=== PATIENT | female | born 1995 | race African-American/Black ===

== ENCOUNTER 2018-07-29 13:24 | Emergency (ER) | payer OTHER ==
--- NOTE | 2018-07-29 14:02 | EDPHYS ---
Physician Documentation [facility] Name: Mamta Mitchell Age: 23 yrs Sex: Female : 1995 Arrival Date: 07/29/2018 Time: 13:25 Bed 12 Private MD: Unknown, Unknown ED Physician Melquiades Colbert HPI: 07/29 14:14 This 23 yrs old Black Female presents to ER via Ambulatory with complaints of ANT BITE, kb Arm Problem. 14:14 The patient presents with cellulitis of the left forearm. Description: erythematous, kb hot, swollen. 14:18 Onset: The symptoms/episode began/occurred yesterday. Possible cause(s): ant bite. kb Associated signs and symptoms: Pertinent positives: erythema, swelling. Modifying factors: the symptoms are alleviated by nothing, the symptoms are aggravated by pressure. Severity of symptoms: At their worst the symptoms were moderate, in the emergency department the symptoms are unchanged. The patient has not experienced similar symptoms in the past. The patient has not recently seen a physician. Historical: - Allergies: 13:51 No Known Allergies; hb - Home Meds: 13:51 None [Active]; hb - PMHx: 13:51 None; hb - PSHx: 13:51 None; hb - Immunization history:: Adult Immunizations up to date. - Social history:: Smoking status: Patient/guardian denies using tobacco. - Ebola Screening: : No symptoms or risks identified at this time. ROS: 14:14 Constitutional: Negative for fever, chills, and weight loss, ENT: Negative for injury, kb pain, and discharge, Neck: Negative for injury, pain, and swelling, Cardiovascular: Negative for chest pain, palpitations, and edema, Respiratory: Negative for shortness of breath, cough, wheezing, and pleuritic chest pain, Abdomen/GI: Negative for abdominal pain, nausea, vomiting, diarrhea, and constipation, MS/Extremity: Negative for injury and deformity, Neuro: Negative for headache, weakness, numbness, tingling, and seizure. 14:14 Skin: Positive for cellulitis, of the left forearm. Exam: 14:13 Constitutional: This is a well developed, well nourished patient who is awake, alert, kb and in no acute distress. Head/Face: Normocephalic, atraumatic. Chest/axilla: Normal chest wall appearance and motion. Nontender with no deformity. No lesions are appreciated. Cardiovascular: Regular rate and rhythm with a normal S1 and S2. No gallops, murmurs, or rubs. Normal PMI, no JVD. No pulse deficits. Respiratory: Lungs have equal breath sounds bilaterally, clear to auscultation and percussion. No rales, rhonchi or wheezes noted. No increased work of breathing, no retractions or nasal flaring. Abdomen/GI: Soft, non-tender, with normal bowel sounds. No distension or tympany. No guarding or rebound. No evidence of tenderness throughout. MS/ Extremity: Pulses equal, no cyanosis. Neurovascular intact. Full, normal range of motion. Neuro: Awake and alert, GCS 15, oriented to person, place, time, and situation. Cranial nerves II-XII grossly intact. Motor strength 5/5 in all extremities. Sensory grossly intact. Cerebellar exam normal. Normal gait. 14:13 Skin: cellulitis, that is moderate, on the left forearm. Vital Signs: 13:50 BP 124 / 70; Pulse 82; Resp 16; Temp 98.1; Pulse Ox 100% on R/A; Pain 6/10; hb MDM: 13:55 Patient medically screened. kb 14:00 Data reviewed: vital signs, nurses notes. Data interpreted: Pulse oximetry: on room air kb is 100 %. Interpretation: normal. Counseling: I had a detailed discussion with the patient and/or guardian regarding: the historical points, exam findings, and any diagnostic results supporting the discharge/admit diagnosis, the need for outpatient follow up, a family practitioner, to return to the emergency department if symptoms worsen or persist or if there are any questions or concerns that arise at home. Administered Medications: 14:19 Drug: Bactrim (160 mg-800 mg (DS) 1 tablet Route: PO; ss 14:26 Follow up: Response: Medication administered at discharge. Disposition: 14:31 Co-signature as Attending Physician, Melquiades Colbert MD I agree with the assessment and kdr plan of care. Disposition: 07/29/18 14:01 Discharged to Home. Impression: Cellulitis of left upper limb. - Condition is Stable. - Discharge Instructions: Cellulitis, Adult, [id number]. - Prescriptions for Bactrim DS 800- 160 mg Oral Tablet - take 1 tablet by ORAL route every 12 hours for 7 days; 14 tablet. - Medication Reconciliation Form, Thank You Letter, Antibiotic Education, Prescription Opioid Use form. - Follow up: Emergency Department; When: As needed; Reason: Worsening of condition. Follow up: Private Physician; When: 2 - 3 days; Reason: Recheck today's complaints, Continuance of care, Re-evaluation by your physician. Signatures: Carmen Sanchez, ANASTACIA-C CLINICAL RESEARCH ADMINISTRATOR-Ckb Melquiades Colbert MD MD [facility] Christie Solitario RN RN Jill Cobian RN RN Corrections: (The following items were deleted from the chart) 14:26 14:01 07/29/2018 14:01 Discharged to Home. Impression: Cellulitis of left upper limb. ss Condition is Stable. Forms are Medication Reconciliation Form, Thank You Letter, Antibiotic Education, Prescription Opioid Use. Follow up: Emergency Department; When: As needed; Reason: Worsening of condition. Follow up: Private Physician; When: 2 - 3 days; Reason: Recheck today's complaints, Continuance of care, Re-evaluation by your physician. kb
--- NOTE | 2018-07-29 14:02 | ER ---
Nurse's Notes [facility] Name: Mamta Mitchell Age: 23 yrs Sex: Female : 1995 Arrival Date: 07/29/2018 Time: 13:25 Bed 12 Private MD: Unknown, Unknown Diagnosis: Cellulitis of left upper limb Presentation: 07/29 13:49 Presenting complaint: Left forearm swelling, pain, and redness after being stung by ant hb on inner wrist yesterday. Transition of care: patient was not received from another setting of care. Onset of symptoms was July 28, 2018. Risk Assessment: Do you want to hurt yourself or someone else? Patient reports no desire to harm self or others. Care prior to arrival: None. 13:49 Method Of Arrival: Ambulatory hb 13:49 Acuity: JHONNY 4 hb 14:26 Initial Sepsis Screen: Does the patient meet any 2 criteria? No. Patient's initial ss sepsis screen is negative. Does the patient have a suspected source of infection? No. Patient's initial sepsis screen is negative. Historical: - Allergies: 13:51 No Known Allergies; hb - Home Meds: 13:51 None [Active]; hb - PMHx: 13:51 None; hb - PSHx: 13:51 None; hb - Immunization history:: Adult Immunizations up to date. - Social history:: Smoking status: Patient/guardian denies using tobacco. - Ebola Screening: : No symptoms or risks identified at this time. Screenin:25 Abuse screen: Denies threats or abuse. Denies injuries from another. Nutritional ss screening: No deficits noted. Tuberculosis screening: Never had TB. Fall Risk None identified. Assessment: 14:23 General: Appears in no apparent distress. comfortable, Behavior is calm, cooperative. ss Pain: Complains of pain in left forearm Pain currently is 6 out of 10 on a pain scale. Quality of pain is described as aching, tender, Pain began 1 day ago. Is continuous. Neuro: Level of Consciousness is awake, alert, obeys commands, Oriented to person, place, time, situation. Cardiovascular: Capillary refill < 3 seconds is brisk in bilateral fingers. Respiratory: Airway is patent Respiratory effort is even, unlabored, Respiratory pattern is regular, symmetrical. GI:. : No signs and/or symptoms were reported regarding the genitourinary system. EENT: Oral mucosa is moist. Derm: Skin is intact, is healthy with good turgor, Skin is dry, Skin is pink, warm \T\ dry. normal. Derm: redness and mild swelling noted to L forearm area. Musculoskeletal: Circulation, motion, and sensation intact. Range of motion: intact in all extremities, Swelling absent. Vital Signs: 13:50 BP 124 / 70; Pulse 82; Resp 16; Temp 98.1; Pulse Ox 100% on R/A; Pain 6/10; hb ED Course: 13:25 Patient arrived in ED. ag5 13:27 Unknown, Unknown is Private Physician. ag5 13:50 Triage completed. hb 13:50 Carmen Sanchez FNP-C is [facility]. kb 13:50 Melquiades Colbert MD is Attending Physician. kb 13:51 Arm band placed on. hb 14:23 Christie Solitario, ALLYSON is Primary Nurse. ss 14:25 Patient has correct armband on for positive identification. Bed in low position. Call ss light in reach. 14:25 No provider procedures requiring assistance completed. Patient did not have IV access ss during this emergency room visit. Administered Medications: 14:19 Drug: Bactrim (160 mg-800 mg (DS) 1 tablet Route: PO; ss 14:26 Follow up: Response: Medication administered at discharge. ss Outcome: 14:01 Discharge ordered by . kb 14:25 Discharged to home ambulatory. ss 14:25 Condition: good 14:25 Discharge instructions given to patient, Instructed on discharge instructions, follow up and referral plans. medication usage, Demonstrated understanding of instructions, follow-up care, medications, Prescriptions given X 1. 14:26 Patient left the ED. ss Signatures: Carmen Sanchez FNP-C FNP-Ckb Smirch, Shelby, RN RN Jill Cobian RN RN Nicanor Parker 5
[2018-07-29] MEDS ORDERED: SMZ./TMP. 800/160 MG TABLET ONE (14:32)
== END 2018-07-29 14:26 | disposition home or self-care (01) ==
LOC: ER 13:24
DX: L03.114 Cellulitis of left upper limb (principal)
CPT/HCPCS: 99283

== ENCOUNTER 2018-08-02 07:56 | Emergency (ER) | payer BC, OTHER ==
[2018-08-02] MEDS ORDERED: NA CHLORIDE 0.9% 1,000 ML ONE (08:46)
[2018-08-02 08:58] LABS: Absolute Lymphocytes (CBC) 0.2 K/uL (0.7-4.9); Absolute Monocytes 0.9 K/uL (0.1-1.3); Absolute Neutrophil 3.9 K/uL (1.8-8.0); Basophils % 0.1 % (0-1.3); Eosinophils % 3.1 % (0-4.4); Hematocrit 42.9 % (36.0-45.0); Lymphocytes % 4.2 % (15.3-44.8); MPV 9.9 fL (7.6-11.3); Monocytes % 16.7 % (3.3-12.3); RBC Red Blood Cell Count 5.07 M/uL (3.86-4.86)
[2018-08-02 09:17] LABS: Albumin 4.2 g/dL (3.4-5.0); Bilirubin Direct 0.1 mg/dL (0-0.2); Bilirubin Total 0.3 mg/dL (0.2-1.0); Potassium 4.3 mmol/L (3.5-5.1); Protein, Total 7.9 g/dL (6.4-8.2)
[2018-08-02 09:42] LABS: Blood Morphology Comment NOT SEEN (NOT SEEN); Platelet Estimate ADEQ; Urine White Blood Cell Casts OK
[2018-08-02 09:46] LABS: Urine Blood TRACE (NEG); Urine Glucose NEGATIVE (NEG); Urine Protein NEGATIVE (NEG); Urine Specific Gravity 1.015 (1.005-1.030); Urine pH 5.5 (5.0-7.0)
[2018-08-02] MEDS ORDERED: KETOROLAC 30 MG/ML INJ ONE (09:54)
--- NOTE | 2018-08-02 10:42 | ER ---
Nurse's Notes [facility] Name: Mamta Mitchell Age: 23 yrs Sex: Female : 1995 Arrival Date: 08/02/2018 Time: 08:02 Bed 16 Private MD: Diagnosis: Influenza due to certain identified influenza viruses Presentation: 08/02 08:09 Presenting complaint: Patient states: headache since yesterday, chills, lower abd pain ss and lower back pain that began this morning. Pt states, "I think I'm dehydrated." Denies N/V/D. Transition of care: patient was not received from another setting of care. Onset of symptoms. Risk Assessment: Do you want to hurt yourself or someone else? Patient reports no desire to harm self or others. Initial Sepsis Screen: Does the patient meet any 2 criteria? No. Patient's initial sepsis screen is negative. Does the patient have a suspected source of infection? No. Patient's initial sepsis screen is negative. Care prior to arrival: None. 08:09 Method Of Arrival: Ambulatory ss 08:09 Acuity: JHONNY 4 ss Triage Assessment: 11:01 Headache History: The patient has had previous headaches and this one is similar to bp previous episodes. General: Appears in no apparent distress. comfortable. General: Behavior is calm, cooperative, appropriate for age. Pain: Pain currently is 7 out of 10 on a pain scale. Pain began 2-3 days ago. Also complains of no other associated symptoms. 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 - Social history:: Smoking status: Patient/guardian denies using tobacco. - Ebola Screening: : Patient denies exposure to infectious person Patient denies travel to an Ebola-affected area in the 21 days before illness onset. Screenin:15 Abuse screen: Denies threats or abuse. Denies injuries from another. Nutritional bp screening: No deficits noted. Tuberculosis screening: No symptoms or risk factors identified. Fall Risk None identified. Assessment: 08:15 General: Appears in no apparent distress. comfortable, Behavior is cooperative, bp appropriate for age, anxious. Pain: Complains of pain in abdomen. Neuro: Level of Consciousness is awake, alert, obeys commands, Oriented to person, place, time, situation, Appropriate for age. Cardiovascular: No deficits noted. Respiratory: Airway is patent Respiratory effort is even, unlabored, Respiratory pattern is regular, symmetrical. GI: Reports lower abdominal pain, upper abdominal pain. : No signs and/or symptoms were reported regarding the genitourinary system. EENT: No deficits noted. Derm: No deficits noted. Musculoskeletal: Circulation, motion, and sensation intact. Range of motion: intact in all extremities. 09:58 Reassessment: ALL CURRENT ORDERS COMPLETED, RESULTS PENDING. bp 11:00 Reassessment: PT D/C HOME AMBULATORY WITH FAMILY, DX WITH INFLUENZA. bp Vital Signs: 08:11 BP 117 / 72; Pulse 98; Resp 14; Temp 99.3(O); Pulse Ox 100% on R/A; Weight 65.77 kg; ss Height 5 ft. 1 in. (154.94 cm); Pain 4/10; 09:19 BP 115 / 79; Pulse 110; Resp 16; Pulse Ox 100% ; bp 09:55 BP 102 / 86; Pulse 100; Resp 16; Pulse Ox 99% ; bp 10:47 BP 106 / 74; Pulse 100; Resp 16; Temp 99.0; Pulse Ox 100% ; bp 08:11 Body Mass Index 27.40 (65.77 kg, 154.94 cm) ss [place] Coma Score: 08:23 Eye Response: spontaneous(4). Verbal Response: oriented(5). Motor Response: obeys kb commands(6). Total: 15. ED Course: 08:02 Patient arrived in ED. mr 08:04 [facility]-C [facility]. kb 08:04 Sundeep Carrasquillo MD is Attending Physician. kb 08:10 Triage completed. ss 08:11 Arm band placed on right wrist. ss 08:15 Patient has correct armband on for positive identification. Bed in low position. Call bp light in reach. Side rails up X2. Adult w/ patient. 08:31 Baltazar Matta, RN is Primary Nurse. bp 08:40 Inserted saline lock: 20 gauge in right antecubital area, using aseptic technique. bp Blood collected. 11:00 No provider procedures requiring assistance completed. IV discontinued, intact, bp bleeding controlled, No redness/swelling at site. Pressure dressing applied. Administered Medications: 08:40 Drug: NS 0.9% 1000 ml Route: IV; Rate: 1000 ml; Site: right antecubital; bp 11:02 Follow up: IV Status: Completed infusion; IV Intake: 1000ml bp 09:40 Drug: TORadol 30 mg Route: IVP; Site: right antecubital; bp 10:50 Follow up: Response: No adverse reaction; Pain is decreased bp 10:59 Drug: Tamiflu 75 mg Route: PO; bp 10:59 Follow up: Response: Medication administered at discharge. bp Intake: 11:02 IV: 1000ml; Total: 1000ml. bp Outcome: 10:42 Discharge ordered by . kb 11:00 Discharged to home ambulatory, with family. bp 11:00 Condition: stable 11:00 Discharge instructions given to patient, Instructed on discharge instructions, follow up and referral plans. medication usage, Demonstrated understanding of instructions, follow-up care, medications, Prescriptions given X 1. 11:03 Patient left the ED. bp Signatures: Carmen Sanchez, ANASTACIA-C ACCOUNT MANAGER-Enzo Adrian Mary Kate mr Christie Solitario, RN RN Baltazar Matta, ALLYSON RN bp
--- NOTE | 2018-08-02 10:42 | EDPHYS ---
Physician Documentation [facility] Name: Mamta Mitchell Age: 23 yrs Sex: Female : 1995 Arrival Date: 08/02/2018 Time: 08:02 Bed 16 Private MD: ED Physician Sundeep Carrasquillo HPI: 08/02 08:19 This 23 yrs old Black Female presents to ER via Ambulatory with complaints of Headache, kb Back Pain, Abdominal Pain. 08:19 The patient complains of pain to the top of head. The patient describes the headache as kb constant. Onset: The symptoms/episode began/occurred yesterday. Associated signs and symptoms: Pertinent positives: abd pain and low back pain. Severity of symptoms: At its worst the pain was mild, in the emergency department the pain is unchanged. Headache History: The patient has had previous headaches. The symptoms are alleviated by nothing. the symptoms are aggravated by nothing. The patient has not experienced similar symptoms in the past. The patient has been recently seen at the [facility] Emergency Department, last week, for unrelated complaints, Pt was seen by me for cellulitis of left forearm. Pt is still taking antibiotics and symptoms are improving. Pt reports headache started yesterday, today has upper abd pain and lower back pain. Denies urinary symptoms, fever, n/v/d. . 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 - Social history:: Smoking status: Patient/guardian denies using tobacco. - Ebola Screening: : Patient denies exposure to infectious person Patient denies travel to an Ebola-affected area in the 21 days before illness onset. ROS: 08:19 Constitutional: Negative for fever, chills, and weight loss, ENT: Negative for injury, kb pain, and discharge, Neck: Negative for injury, pain, and swelling, Cardiovascular: Negative for chest pain, palpitations, and edema, Respiratory: Negative for shortness of breath, cough, wheezing, and pleuritic chest pain, MS/Extremity: Negative for injury and deformity, Skin: Negative for injury, rash, and discoloration. 08:19 Abdomen/GI: Positive for abdominal pain, Negative for nausea, vomiting, and diarrhea, constipation. 08:19 Back: Positive for pain at rest, of the low back area. 08:19 Neuro: Positive for headache, Negative for altered mental status, dizziness, gait disturbance, hearing loss, loss of consciousness, numbness, seizure activity, speech changes, syncope, near syncope, tingling, tinnitus, tremor, visual changes, weakness. Exam: 08:23 Constitutional: This is a well developed, well nourished patient who is awake, alert, kb and in no acute distress. Head/Face: Normocephalic, atraumatic. ENT: Nares patent. No nasal discharge, no septal abnormalities noted. Tympanic membranes are normal and external auditory canals are clear. Oropharynx with no redness, swelling, or masses, exudates, or evidence of obstruction, uvula midline. Mucous membranes moist. Neck: Trachea midline, no thyromegaly or masses palpated, and no cervical lymphadenopathy. Supple, full range of motion without nuchal rigidity, or vertebral point tenderness. No Meningismus. Chest/axilla: Normal chest wall appearance and motion. Nontender with no deformity. No lesions are appreciated. Cardiovascular: Regular rate and rhythm with a normal S1 and S2. No gallops, murmurs, or rubs. Normal PMI, no JVD. No pulse deficits. Respiratory: Lungs have equal breath sounds bilaterally, clear to auscultation and percussion. No rales, rhonchi or wheezes noted. No increased work of breathing, no retractions or nasal flaring. Skin: Warm, dry with normal turgor. Normal color with no rashes, no lesions, and no evidence of cellulitis. MS/ Extremity: Pulses equal, no cyanosis. Neurovascular intact. Full, normal range of motion. Neuro: Awake and alert, GCS 15, oriented to person, place, time, and situation. Cranial nerves II-XII grossly intact. Motor strength 5/5 in all extremities. Sensory grossly intact. Cerebellar exam normal. Normal gait. 08:23 Abdomen/GI: Inspection: abdomen appears normal, Bowel sounds: normal, in all quadrants, Palpation: soft, in all quadrants, nontender, in the right lower quadrant and left lower quadrant, mild abdominal tenderness, in the suprapubic area, right upper quadrant and left upper quadrant. 08:23 Back: CVA tenderness, that is mild, is noted bilaterally. Vital Signs: 08:11 BP 117 / 72; Pulse 98; Resp 14; Temp 99.3(O); Pulse Ox 100% on R/A; Weight 65.77 kg; ss Height 5 ft. 1 in. (154.94 cm); Pain 4/10; 09:19 BP 115 / 79; Pulse 110; Resp 16; Pulse Ox 100% ; bp 09:55 BP 102 / 86; Pulse 100; Resp 16; Pulse Ox 99% ; bp 10:47 BP 106 / 74; Pulse 100; Resp 16; Temp 99.0; Pulse Ox 100% ; bp 08:11 Body Mass Index 27.40 (65.77 kg, 154.94 cm) ss [place] Coma Score: 08:23 Eye Response: spontaneous(4). Verbal Response: oriented(5). Motor Response: obeys kb commands(6). Total: 15. MDM: 08:09 Patient medically screened. [facility] 08:23 Data reviewed: vital signs, nurses notes. Data interpreted: Pulse oximetry: on room air kb is 100 %. Interpretation: normal. 10:42 Counseling: I had a detailed discussion with the patient and/or guardian regarding: the kb historical points, exam findings, and any diagnostic results supporting the discharge/admit diagnosis, lab results, radiology results, the need for outpatient follow up, a family practitioner, to return to the emergency department if symptoms worsen or persist or if there are any questions or concerns that arise at home. 08/02 08:24 Order name: Basic Metabolic Panel; Complete Time: 09:21 kb 08/02 08:24 Order name: CBC with Diff; Complete Time: 09:45 kb 08/02 08:24 Order name: Hepatic Function; Complete Time: 09:21 kb 08/02 08:24 Order name: Lipase; Complete Time: 09:21 kb 08/02 08:55 Order name: Urine Dipstick--Ancillary (enter results); Complete Time: 09:51 bd 08/02 08:59 Order name: CBC Smear Scan; Complete Time: 09:45 EDMS 08/02 08:24 Order name: IV Saline Lock; Complete Time: 08:50 kb 08/02 08:24 Order name: Labs collected and sent; Complete Time: 08:50 kb 08/02 08:24 Order name: Urine Dipstick-Ancillary (obtain specimen); Complete Time: 08:50 kb 08/02 09:27 Order name: Vital Signs; Complete Time: 09:32 kb 08/02 09:35 Order name: Flu; Complete Time: 10:36 kb Administered Medications: 08:40 Drug: NS 0.9% 1000 ml Route: IV; Rate: 1000 ml; Site: right antecubital; bp 11:02 Follow up: IV Status: Completed infusion; IV Intake: 1000ml bp 09:40 Drug: TORadol 30 mg Route: IVP; Site: right antecubital; bp 10:50 Follow up: Response: No adverse reaction; Pain is decreased bp 10:59 Drug: Tamiflu 75 mg Route: PO; bp 10:59 Follow up: Response: Medication administered at discharge. bp Disposition: 11:18 Co-signature as Attending Physician, Sundeep Carrasquillo MD I agree with the assessment and alysha plan of care. Disposition: 08/02/18 10:42 Discharged to Home. Impression: Influenza due to certain identified influenza viruses. - Condition is Stable. - Discharge Instructions: Influenza, Adult, [id number]. - Prescriptions for Tamiflu 75 mg Oral Capsule - take 1 capsule by ORAL route every 12 hours for 5 days; 10 capsule. - Work release form, Medication Reconciliation Form, Thank You Letter, Antibiotic Education, Prescription Opioid Use form. - Follow up: Emergency Department; When: As needed; Reason: Worsening of condition. Follow up: Private Physician; When: 2 - 3 days; Reason: Recheck today's complaints, Continuance of care, Re-evaluation by your physician. Signatures: Dispatcher [employer] [facility] Carmen Sanchez, ANASTACIA-C ANASTACIA-Sundeep Reynoso MD MD cha Smirch, Shelby, ALLYSON RN Baltazar Woods RN RN bp Corrections: (The following items were deleted from the chart) 11:03 10:42 08/02/2018 10:42 Discharged to Home. Impression: Influenza due to certain bp identified influenza viruses. Condition is Stable. Forms are Medication Reconciliation Form, Thank You Letter, Antibiotic Education, Prescription Opioid Use. Follow up: Emergency Department; When: As needed; Reason: Worsening of condition. Follow up: Private Physician; When: 2 - 3 days; Reason: Recheck today's complaints, Continuance of care, Re-evaluation by your physician. kb
[2018-08-02] MEDS ORDERED: OSELTAMIVIR 75 MG CAP ONE (11:05)
== END 2018-08-02 11:03 | disposition home or self-care (01) ==
LOC: ER 07:56
DX: J10.1 Influenza due to other identified influenza virus with other respiratory manifestations (principal); Z88.5 Allergy status to narcotic agent
CPT/HCPCS: 36415; 80048; 80076; 81003; 83690; 85025; 87804; 96361; 96374; 99284; J7030

== ENCOUNTER 2018-08-05 12:20 | Emergency (ER) | payer BC ==
[2018-08-05] MEDS ORDERED: ACETAMINOPHEN 500 MG TAB ONE (12:54)
--- NOTE | 2018-08-05 13:12 | EDPHYS ---
Physician Documentation [facility] Name: Mamta Mitchell Age: 23 yrs Sex: Female : 1995 Arrival Date: 08/05/2018 Time: 12:21 Bed 23 Private MD: ED Physician Doug Hu HPI: 08/05 12:43 This 23 yrs old Black Female presents to ER via Ambulatory with complaints of Fever. jr8 12:43 The patient reports fever, with an emergency department temperature of 101.0 degrees jr8 Fahrenheit. Onset: The symptoms/episode began/occurred gradually, 1 week(s) ago. Modifying factors: there are no obvious modifying factors. Associated signs and symptoms: Pertinent positives: cough, runny nose, sore throat. Severity of symptoms: At their worst the symptoms were mild in the emergency department the symptoms are unchanged. The patient has not experienced similar symptoms in the past. The patient has been recently seen by a physician:. Patient diagnosed with influenza this week. Has been on tamiflu. Came to ED today for extension on work note. Stated that she has bad taste in mouth that she cannot get rid of . 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 - Social history:: Smoking status: Patient/guardian denies using tobacco. - Ebola Screening: : No symptoms or risks identified at this time. ROS: 12:43 Eyes: Negative for injury, pain, redness, and discharge, Neck: Negative for injury, jr8 pain, and swelling, Cardiovascular: Negative for chest pain, palpitations, and edema, Abdomen/GI: Negative for abdominal pain, nausea, vomiting, diarrhea, and constipation, Back: Negative for injury and pain, MS/Extremity: Negative for injury and deformity, Skin: Negative for injury, rash, and discoloration, Neuro: Negative for headache, weakness, numbness, tingling, and seizure. 12:43 Constitutional: Positive for body aches, chills, fever, malaise. 12:43 ENT: Positive for rhinorrhea, sore throat. 12:43 Respiratory: Positive for cough, Negative for dyspnea on exertion, shortness of breath, sputum production, wheezing. Exam: 12:43 Eyes: Pupils equal round and reactive to light, extra-ocular motions intact. Lids and jr8 lashes normal. Conjunctiva and sclera are non-icteric and not injected. Cornea within normal limits. Periorbital areas with no swelling, redness, or edema. Neck: Trachea midline, no thyromegaly or masses palpated, and no cervical lymphadenopathy. Supple, full range of motion without nuchal rigidity, or vertebral point tenderness. No Meningismus. Cardiovascular: Regular rate and rhythm with a normal S1 and S2. No gallops, murmurs, or rubs. Normal PMI, no JVD. No pulse deficits. Respiratory: Lungs have equal breath sounds bilaterally, clear to auscultation and percussion. No rales, rhonchi or wheezes noted. No increased work of breathing, no retractions or nasal flaring. Abdomen/GI: Soft, non-tender, with normal bowel sounds. No distension or tympany. No guarding or rebound. No evidence of tenderness throughout. Back: No spinal tenderness. No costovertebral tenderness. Full range of motion. Skin: Warm, dry with normal turgor. Normal color with no rashes, no lesions, and no evidence of cellulitis. MS/ Extremity: Pulses equal, no cyanosis. Neurovascular intact. Full, normal range of motion. Neuro: Awake and alert, GCS 15, oriented to person, place, time, and situation. Cranial nerves II-XII grossly intact. Motor strength 5/5 in all extremities. Sensory grossly intact. Cerebellar exam normal. Normal gait. 12:43 ENT: Exam is negative for earache, ear discharge, TM abnormalities, nasal discharge, Mouth: Lips: moist, Oral mucosa: pink and intact, moist, Gums: pink, Tongue: is moist, Posterior pharynx: Airway: patent, Tonsils: bilaterally enlarged, with erythema, with exudate, no ulcerations, Uvula: midline, non-edematous, no erythema, swelling, is not appreciated, erythema, that is moderate. Vital Signs: 12:29 BP 108 / 72; Pulse 112; Resp 18 S; Temp 101.0(O); Pulse Ox 98% on R/A; Weight 65.77 kg aa5 (R); Height 5 ft. 1 in. (154.94 cm) (R); Pain 3/10; 13:22 Resp 16; Temp 99.1(TE); ss 12:29 Body Mass Index 27.40 (65.77 kg, 154.94 cm) aa5 MDM: 12:36 Patient medically screened. jr8 13:11 Data reviewed: vital signs, nurses notes, lab test result(s), and as a result, I will jr8 discharge patient. Data interpreted: Pulse oximetry: on room air is 98 %. Interpretation: normal. Counseling: I had a detailed discussion with the patient and/or guardian regarding: the historical points, exam findings, and any diagnostic results supporting the discharge/admit diagnosis, lab results, the need for outpatient follow up, a family practitioner, to return to the emergency department if symptoms worsen or persist or if there are any questions or concerns that arise at home. 08/05 12:36 Order name: Strep; Complete Time: 13:10 jr8 08/05 13:06 Order name: Throat Culture EDMS Administered Medications: 12:44 Drug: Tylenol 1000 mg Route: PO; aa5 13:23 Follow up: Response: No adverse reaction; Temperature is decreased ss Disposition: 17:49 Co-signature as Attending Physician, Doug Hu MD. rn Disposition: 08/05/18 13:11 Discharged to Home. Impression: Fever, unspecified, Acute pharyngitis. - Condition is Stable. - Discharge Instructions: Fever, Adult, Pharyngitis. - Work release form, Medication Reconciliation Form, Thank You Letter, Antibiotic Education, Prescription Opioid Use form. - Follow up: Private Physician; When: 2 - 3 days; Reason: Recheck today's complaints, Continuance of care, Re-evaluation by your physician. - Problem is new. - Symptoms have improved. 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 EDKY EDKY 13:23 13:11 08/05/2018 13:11 Discharged to Home. Impression: Fever, unspecified; Acute ss pharyngitis. Condition is Stable. Forms are Medication Reconciliation Form, Thank You Letter, Antibiotic Education, Prescription Opioid Use. Follow up: Private Physician; When: 2 - 3 days; Reason: Recheck today's complaints, Continuance of care, Re-evaluation by your physician. Problem is new. Symptoms have improved. jr8
--- NOTE | 2018-08-05 13:12 | ER ---
Nurse's Notes [facility] Name: Mamta Mitchell Age: 23 yrs Sex: Female : 1995 Arrival Date: 08/05/2018 Time: 12:21 Bed 23 Private MD: Diagnosis: Fever, unspecified;Acute pharyngitis Presentation: 08/05 12:27 Presenting complaint: Patient states: body aches, cough, fever that began Thursday. Pt aa5 reports taking Motrin at 1100. Transition of care: patient was not received from another setting of care. Onset of symptoms was August 2018. Risk Assessment: Do you want to hurt yourself or someone else? Patient reports no desire to harm self or others. Care prior to arrival: None. 12:27 Method Of Arrival: Ambulatory aa5 12:27 Acuity: JHONNY 4 aa5 12:27 Initial Sepsis Screen: Does the patient meet any 2 criteria? Temp <36.0*C (96.8*F)) or aa5 > 38.3*C (100.9*F). HR > 90 bpm. Yes Does the patient have a suspected source of infection? Yes:. 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 - Social history:: Smoking status: Patient/guardian denies using tobacco. - Ebola Screening: : No symptoms or risks identified at this time. Screenin:46 Abuse screen: Denies threats or abuse. Nutritional screening: No deficits noted. aa5 Tuberculosis screening: No symptoms or risk factors identified. Fall Risk None identified. Assessment: 12:40 General: Appears uncomfortable, Behavior is cooperative. Pain: Complains of pain in aa5 whole body Quality of pain is described as aching. Neuro: Level of Consciousness is awake, alert, obeys commands, Oriented to person, place, time, situation. Cardiovascular: Heart tones S1 S2 present Rhythm is regular. Respiratory: Reports cough Airway is patent Respiratory effort is even, unlabored, Respiratory pattern is regular, symmetrical, Breath sounds are clear bilaterally. GI: Abdomen is round non-distended, Bowel sounds present X 4 quads. Abd is soft and non tender X 4 quads. Reports nausea, Patient currently denies vomiting. : No signs and/or symptoms were reported regarding the genitourinary system. EENT: Denies sore throat. Derm: Skin is dry, Skin is normal, Skin temperature is warm. Musculoskeletal: Range of motion: intact in all extremities. Vital Signs: 12:29 BP 108 / 72; Pulse 112; Resp 18 S; Temp 101.0(O); Pulse Ox 98% on R/A; Weight 65.77 kg aa5 (R); Height 5 ft. 1 in. (154.94 cm) (R); Pain 3/10; 13:22 Resp 16; Temp 99.1(TE); ss 12:29 Body Mass Index 27.40 (65.77 kg, 154.94 cm) aa5 ED Course: 12:21 Patient arrived in ED. rg4 12:27 Arm band placed on. aa5 12:27 Patient has correct armband on for positive identification. Bed in low position. Call aa5 light in reach. Side rails up X 1. Adult w/ patient. 12:28 Triage completed. aa5 12:35 Francis Pruett PA is PHCP. jr8 12:35 Doug Hu MD is Attending Physician. jr8 12:44 Nara Stokes, ALLYSON is Primary Nurse. aa5 12:47 No provider procedures requiring assistance completed. aa5 13:22 Patient did not have IV access during this emergency room visit. ss Administered Medications: 12:44 Drug: Tylenol 1000 mg Route: PO; aa5 13:23 Follow up: Response: No adverse reaction; Temperature is decreased ss Outcome: 13:11 Discharge ordered by . jr8 13:22 Discharged to home ambulatory. ss 13:22 Condition: good 13:22 Discharge instructions given to patient, Instructed on discharge instructions, follow up and referral plans. medication usage, Demonstrated understanding of instructions, follow-up care, medications. 13:23 Patient left the ED. Signatures: Nara Stokes, RN RN aa5 Christie Solitario RN RN Francis Pruett PA PA 8 Nikki Villarreal rg4
== END 2018-08-05 13:23 | disposition home or self-care (01) ==
LOC: ER 12:20
DX: J02.9 Acute pharyngitis, unspecified (principal); Z88.5 Allergy status to narcotic agent
CPT/HCPCS: 87070; 87081; 99283

== ENCOUNTER 2018-08-05 16:08 | Emergency (ER) | payer BC ==
--- NOTE | 2018-08-05 17:12 | ER ---
Nurse's Notes [facility] Name: Mamta Mitchell Age: 23 yrs Sex: Female : 1995 Arrival Date: 08/05/2018 Time: 16:12 Bed 14 Private MD: Diagnosis: Allergic contact dermatitis;Allergy status to drugs, medicaments and biological substances-Sulfa or Tamiflu Presentation: 08/05 16:12 Presenting complaint: Patient states: Seen recently in ER for Rash last week after ant ss bite, but reports it is getting worse and spreading. Transition of care: patient was not received from another setting of care. Onset: The symptoms/episode began/occurred 1 week(s) ago. Anaphylaxis evaluation, no signs or symptoms of anaphylaxis were noted. Onset of symptoms is unknown. Risk Assessment: Do you want to hurt yourself or someone else? Patient reports no desire to harm self or others. Initial Sepsis Screen: Does the patient meet any 2 criteria? No. Patient's initial sepsis screen is negative. Does the patient have a suspected source of infection? No. Patient's initial sepsis screen is negative. Care prior to arrival: None. 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 - Social history:: Smoking status: Patient/guardian denies using tobacco. - Ebola Screening: : Patient denies exposure to infectious person Patient denies travel to an Ebola-affected area in the 21 days before illness onset. Screenin:38 Abuse screen: Denies threats or abuse. Denies injuries from another. Nutritional rv screening: No deficits noted. Tuberculosis screening: No symptoms or risk factors identified. Fall Risk None identified. Assessment: 16:37 General: Appears in no apparent distress. comfortable, Behavior is calm, cooperative. rv Pain: Denies pain. Neuro: Level of Consciousness is awake, alert, obeys commands, Oriented to person, place, time, situation. Cardiovascular: Capillary refill < 3 seconds. Respiratory: Airway is patent Respiratory effort is even, Breath sounds are clear bilaterally. GI: No signs and/or symptoms were reported involving the gastrointestinal system. : No signs and/or symptoms were reported regarding the genitourinary system. EENT: No signs and/or symptoms were reported regarding the EENT system. Derm: Skin is intact. Musculoskeletal: No signs and/or symptoms reported regarding the musculoskeletal system. Vital Signs: 16:15 BP 102 / 66; Pulse 91; Resp 14; Temp 98.4(TE); Pulse Ox 97% on R/A; Weight 65.77 kg; ss Height 5 ft. 1 in. (154.94 cm); 16:15 Body Mass Index 27.40 (65.77 kg, 154.94 cm) ED Course: 16:12 Patient arrived in ED. ss 16:15 Triage completed. ss 16:15 Arm band placed on right wrist. ss 16:19 Viky Cordoba FNP-C is [facility]. snw 16:19 Doug Hu MD is Attending Physician. snw 16:29 Sharad Alejandro RN is Primary Nurse. rv 16:38 Patient has correct armband on for positive identification. Bed in low position. Call rv light in reach. Side rails up X 1. Pulse ox on. NIBP on. 17:33 No provider procedures requiring assistance completed. Patient did not have IV access rv during this emergency room visit. Administered Medications: 17:05 Drug: Atarax 50 mg Route: PO; rv 17:33 Follow up: Response: Marked relief of symptoms rv 17:05 Drug: Pepcid 20 mg Route: PO; rv 17:32 Follow up: Response: No adverse reaction rv Outcome: 17:11 Discharge ordered by . snw 17:33 Discharged to home ambulatory. rv 17:33 Condition: good 17:33 Discharge instructions given to patient, Instructed on discharge instructions, follow up and referral plans. medication usage, Demonstrated understanding of instructions, follow-up care, medications, Prescriptions given X 2. 17:37 Patient left the ED. rv Signatures: Viky Cordoba FNP-C FNP-Christie Trejo RN RN Sharad Alejandro RN RN rv
--- NOTE | 2018-08-05 17:12 | EDPHYS ---
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 - Social history:: Smoking status: Patient/guardian denies using tobacco. - Ebola Screening: : Patient denies exposure to infectious person Patient denies travel to an Ebola-affected area in the 21 days before illness onset. Exam: 17:35 Head/Face: Normocephalic, atraumatic. snw 17:35 Eyes: Pupils equal round and reactive to light, extra-ocular motions intact. Lids and lashes normal. Conjunctiva and sclera are non-icteric and not injected. Cornea within normal limits. Periorbital areas with no swelling, redness, or edema. ENT: Nares patent. No nasal discharge, no septal abnormalities noted. Tympanic membranes are normal and external auditory canals are clear. Oropharynx with redness, no swelling, or masses, exudates, or evidence of obstruction, uvula midline. Mucous membranes moist. Neck: Trachea midline, no thyromegaly or masses palpated, and no cervical lymphadenopathy. Supple, full range of motion without nuchal rigidity, or vertebral point tenderness. No Meningismus. Chest/axilla: Normal chest wall appearance and motion. Nontender with no deformity. No lesions are appreciated. Cardiovascular: Regular rate and rhythm with a normal S1 and S2. No gallops, murmurs, or rubs. Normal PMI, no JVD. No pulse deficits. Respiratory: Lungs have equal breath sounds bilaterally, clear to auscultation and percussion. No rales, rhonchi or wheezes noted. No increased work of breathing, no retractions or nasal flaring. Abdomen/GI: Soft, non-tender, with normal bowel sounds. No distension or tympany. No guarding or rebound. No evidence of tenderness throughout. Back: No spinal tenderness. No costovertebral tenderness. Full range of motion. Skin: Warm, dry with normal turgor. Normal color with no rashes, no lesions, and no evidence of cellulitis. MS/ Extremity: Pulses equal, no cyanosis. Neurovascular intact. Full, normal range of motion. Neuro: Awake and alert, GCS 15, oriented to person, place, time, and situation. Cranial nerves II-XII grossly intact. Motor strength 5/5 in all extremities. Sensory grossly intact. Cerebellar exam normal. Normal gait. 17:35 Constitutional: The patient appears alert, awake, uncomfortable. Vital Signs: 16:15 BP 102 / 66; Pulse 91; Resp 14; Temp 98.4(TE); Pulse Ox 97% on R/A; Weight 65.77 kg; ss Height 5 ft. 1 in. (154.94 cm); 16:15 Body Mass Index 27.40 (65.77 kg, 154.94 cm) ss MDM: 16:43 Patient medically screened. snw 17:36 Data reviewed: vital signs, nurses notes. Data interpreted: Pulse oximetry: on room air snw is 97 %. Interpretation: normal. Counseling: I had a detailed discussion with the patient and/or guardian regarding: the historical points, exam findings, and any diagnostic results supporting the discharge/admit diagnosis, the need for outpatient follow up, to return to the emergency department if symptoms worsen or persist or if there are any questions or concerns that arise at home. Special discussion: Based on the history and exam findings, there is no indication for further emergent testing or inpatient evaluation. I discussed with the patient/guardian the need to see the primary care provider for further evaluation of the symptoms. 17:39 ED course: pt was here for cellulitis 07/29, given Bactrim. Finished Bactrim, area of snw cellulitis similar to onset. Returned and was dx with Influenza on 08/03, given Tamiflu. Seen today with pharyngitis, strep screen negative. Returns today again for rash that seems to be spreading. + allergy. Asked pt to stop Tamiflu. Allergic response possibly from Bactrim or Tamiflu. Administered Medications: 17:05 Drug: Atarax 50 mg Route: PO; rv 17:33 Follow up: Response: Marked relief of symptoms rv 17:05 Drug: Pepcid 20 mg Route: PO; rv 17:32 Follow up: Response: No adverse reaction rv Disposition: 08/05/18 17:11 Discharged to Home. Impression: Allergic contact dermatitis, Allergy status to drugs, medicaments and biological substances - Sulfa or Tamiflu. - Condition is Stable. - Discharge Instructions: Allergies, Adult, Drug Allergy. - Prescriptions for Vistaril 25 mg Oral capsule - take 1 capsule by ORAL route 3 times per day; 30 capsule. Pepcid 20 mg Oral Tablet - take 1 tablet by ORAL route every 12 hours for 10 days; 20 tablet. - Medication Reconciliation Form, Thank You Letter, Antibiotic Education, Prescription Opioid Use form. - Follow up: Private Physician; When: 2 - 3 days; Reason: Recheck today's complaints, Continuance of care, Re-evaluation by your physician. Follow up: Emergency Department; When: As needed; Reason: Worsening of condition. Addendum: 08/09/2018 07:02 Co-signature as Attending Physician, Doug Hu MD. r n 08/13/2018 05:16 Addendum: HPI: multiple visits this week for rash to hand/arm s/p insect bites. Pt s nw completed Bactrim. Returned for fever and malaise, bodyaches. + influenza, given Tamiflu. Pt returns today with severe itching, to upper extremities with em type rash. Encouraged to stop Tamiflu and consider allergy to Tamiflu and Bactrim. + itching, rash, negative for swelling, shortness of breath, dysphagia, no mucous membrane breakdown.. Signatures: Viky Cordoba, ASSOCIATE DATA SCIENTIST-C ASSOCIATE DATA SCIENTIST-Csnw Doug Hu MD MD rn Smirch, Shelby, RN RN ss Vicente, Ronaldo, RN RN rv Corrections: (The following items were deleted from the chart) 08/05 17:37 17:11 08/05/2018 17:11 Discharged to Home. Impression: Allergic contact dermatitis; rv Allergy status to drugs, medicaments and biological substances - Sulfa or Tamiflu. Condition is Stable. Forms are Medication Reconciliation Form, Thank You Letter, Antibiotic Education, Prescription Opioid Use. Follow up: Private Physician; When: 2 - 3 days; Reason: Recheck today's complaints, Continuance of care, Re-evaluation by your physician. Follow up: Emergency Department; When: As needed; Reason: Worsening of condition. snw 17:39 17:35 Eyes: Pupils equal round and reactive to light, extra-ocular motions intact. Lids snw and lashes normal. Conjunctiva and sclera are non-icteric and not injected. Cornea within normal limits. Periorbital areas with no swelling, redness, or edema. ENT: Nares patent. No nasal discharge, no septal abnormalities noted. Tympanic membranes are normal and external auditory canals are clear. Oropharynx with redness, swelling, or masses, exudates, or evidence of obstruction, uvula midline. Mucous membranes moist. Neck: Trachea midline, no thyromegaly or masses palpated, and no cervical lymphadenopathy. Supple, full range of motion without nuchal rigidity, or vertebral point tenderness. No Meningismus. Chest/axilla: Normal chest wall appearance and motion. Nontender with no deformity. No lesions are appreciated. Cardiovascular: Regular rate and rhythm with a normal S1 and S2. No gallops, murmurs, or rubs. Normal PMI, no JVD. No pulse deficits. Respiratory: Lungs have equal breath sounds bilaterally, clear to auscultation and percussion. No rales, rhonchi or wheezes noted. No increased work of breathing, no retractions or nasal flaring. Abdomen/GI: Soft, non-tender, with normal bowel sounds. No distension or tympany. No guarding or rebound. No evidence of tenderness throughout. Back: No spinal tenderness. No costovertebral tenderness. Full range of motion. Skin: Warm, dry with normal turgor. Normal color with no rashes, no lesions, and no evidence of cellulitis. MS/ Extremity: Pulses equal, no cyanosis. Neurovascular intact. Full, normal range of motion. Neuro: Awake and alert, GCS 15, oriented to person, place, time, and situation. Cranial nerves II-XII grossly intact. Motor strength 5/5 in all extremities. Sensory grossly intact. Cerebellar exam normal. Normal gait. snw
[2018-08-05] MEDS ORDERED: FAMOTIDINE 20 MG TAB ONE (17:23)
[2018-08-05] MEDS ORDERED: hydrOXYzine HCl 25 MG TAB ONE (17:23)
== END 2018-08-05 17:37 | disposition home or self-care (01) ==
LOC: ER 16:08
DX: L23.9 Allergic contact dermatitis, unspecified cause (principal); Z88.8 Allergy status to other drugs, medicaments and biological substances; Z88.5 Allergy status to narcotic agent
CPT/HCPCS: 99283

== ENCOUNTER 2019-01-01 20:10 | Emergency (ER) | payer BC, OTHER ==
[2019-01-01 20:44] LABS: Absolute Lymphocytes (CBC) 1.1 K/uL (0.7-4.9); Basophils % 0.6 % (0-1.3); Hematocrit 43.1 % (36.0-45.0); Lymphocytes % 24.2 % (15.3-44.8); MPV 9.4 fL (7.6-11.3); RBC Red Blood Cell Count 5.02 M/uL (3.86-4.86)
[2019-01-01 21:01] LABS: Albumin 4.3 g/dL (3.4-5.0); Bilirubin Direct 0.2 mg/dL (0-0.2); Bilirubin Total 0.6 mg/dL (0.2-1.0); Potassium 3.5 mmol/L (3.5-5.1)
[2019-01-01 21:24] LABS: Urine Blood 1+ (NEG); Urine Glucose NEGATIVE (NEG); Urine Protein 3+ (NEG); Urine Specific Gravity >1.030 (1.005-1.030); Urine pH 5.5 (5.0-7.0)
--- NOTE | 2019-01-01 21:26 | ER ---
Nurse's Notes [facility] Name: Mamta Mitchell Age: 23 yrs Sex: Female : 1995 Arrival Date: 01/01/2019 Time: 20:14 Bed 19 Private MD: Diagnosis: Unspecified abdominal pain;Urinary tract infection, site not specified Presentation: 01/01 20:24 Presenting complaint: Patient states: abd pain since yesterday, worse today. Transition la1 of care: patient was not received from another setting of care. Onset of symptoms was January 01, 2019. Risk Assessment: Do you want to hurt yourself or someone else? Patient reports no desire to harm self or others. Initial Sepsis Screen: Does the patient meet any 2 criteria? No. Patient's initial sepsis screen is negative. Does the patient have a suspected source of infection? No. Patient's initial sepsis screen is negative. Care prior to arrival: None. 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 - Social history:: Smoking status: Patient/guardian denies using tobacco. - Ebola Screening: : No symptoms or risks identified at this time. Screenin:44 Abuse screen: Denies threats or abuse. Nutritional screening: No deficits noted. jd3 Tuberculosis screening: No symptoms or risk factors identified. Fall Risk IV access (20 points). Ambulatory Aid- None/Bed Rest/Nurse Assist (0 pts). Gait- Normal/Bed Rest/Wheelchair (0 pts) Mental Status- Oriented to own ability (0 pts). Total Son Fall Scale indicates No Risk (0-24 pts). Assessment: 20:42 General: Appears in no apparent distress. uncomfortable, Behavior is calm, cooperative, jd3 appropriate for age. Pain: Complains of pain in abdomen Quality of pain is described as crampy, sharp. Neuro: Level of Consciousness is awake, alert, obeys commands, Oriented to person, place, time, situation. Cardiovascular: Denies chest pain, Capillary refill < 3 seconds Patient's skin is warm and dry. Respiratory: Airway is patent Respiratory effort is even, unlabored, Respiratory pattern is regular, symmetrical, Denies cough, shortness of breath. GI: Abdomen is round non-distended, Abd is soft and non tender X 4 quads. Reports upper abdominal pain, cramping, Patient currently denies constipation, diarrhea, nausea, vomiting. : No signs and/or symptoms were reported regarding the genitourinary system. EENT: No signs and/or symptoms were reported regarding the EENT system. Derm: Skin is intact, Skin is dry, Skin is normal, Skin temperature is warm. Musculoskeletal: Circulation, motion, and sensation intact. Range of motion: intact in all extremities. 21:19 Reassessment: Patient appears in no apparent distress at this time. No changes from jd3 previously documented assessment. Patient and/or family updated on plan of care and expected duration. Pain level reassessed. Patient is alert, oriented x 3, equal unlabored respirations, skin warm/dry/pink. pt refusing CT scan. 21:45 Reassessment: Patient appears in no apparent distress at this time. Patient and/or jd3 family updated on plan of care and expected duration. Pain level reassessed. Patient is alert, oriented x 3, equal unlabored respirations, skin warm/dry/pink. pt reported understanding of discharge instructions. Patient states feeling better. Vital Signs: 20:24 BP 129 / 90; Pulse 89; Resp 16; Temp 97.7; Pulse Ox 100% ; Weight 63.5 kg; Height 5 ft. la1 1 in. (154.94 cm); 21:45 BP 119 / 78; Pulse 88; Resp 16 S; Pulse Ox 100% on R/A; jd3 20:24 Body Mass Index 26.45 (63.50 kg, 154.94 cm) la1 ED Course: 20:14 Patient arrived in ED. mr 20:16 Qasim Shah NP is PHCP. pm1 20:16 Doug Hu MD is Attending Physician. pm1 20:24 Triage completed. la1 20:30 Jose Whitlock RN is Primary Nurse. jd3 20:35 Inserted saline lock: 20 gauge in right antecubital area, using aseptic technique. jd3 Blood collected. 20:42 Arm band placed on. jd3 20:45 Patient has correct armband on for positive identification. Bed in low position. Call jd3 light in reach. Side rails up X 1. 21:44 No provider procedures requiring assistance completed. IV discontinued, intact, jd3 bleeding controlled, No redness/swelling at site. Pressure dressing applied. Administered Medications: 21:40 Drug: Rocephin 1 grams Route: IV; Rate: calculated rate; Site: left antecubital; jd3 21:44 Follow up: Response: No adverse reaction; IV Status: Completed infusion; IV Intake: [id number] Intake: 21:44 IV: 10ml; Total: 10ml. jd3 Outcome: 21:24 Discharge ordered by MD. pm1 21:44 Discharged to home ambulatory, with family. jd3 21:44 Condition: stable 21:44 Discharge instructions given to patient, family, Instructed on discharge instructions, follow up and referral plans. medication usage, Demonstrated understanding of instructions, follow-up care, medications, Prescriptions given X 1. 21:46 Patient left the ED. jd3 Addendum: 01/04/2019 09:52 Addendum: Culture Results: Positive urine culture. No further action required. Bacteria s s sensitive to prescribed antibiotic. Signatures: Mary Kate Campbell mr Christie Solitario, RN RN ss Gene Barnes RN RN la1 Qasim Shah, KALEN AERONAUTICAL RESEARCH ENGINEER pm1 Jose Whitlock RN RN jd3 Corrections: (The following items were deleted from the chart) 01/01 21:19 21:19 Reassessment: Patient appears in no apparent distress at this time. Patient jd3 and/or family updated on plan of care and expected duration. Pain level reassessed. Patient is alert, oriented x 3, equal unlabored respirations, skin warm/dry/pink. pt refusing CT scan. jd3
--- NOTE | 2019-01-01 21:27 | EDPHYS ---
Physician Documentation [facility] Name: Mamta Mitchell Age: 23 yrs Sex: Female : 1995 Arrival Date: 01/01/2019 Time: 20:14 Bed 19 Private MD: ED Physician Doug Hu HPI: 01/01 20:45 This 23 yrs old Black Female presents to ER via Ambulatory with complaints of Abdominal pm1 Pain. 20:45 The patient presents with abdominal pain in the lower abdomen. Onset: The pm1 symptoms/episode began/occurred yesterday. The symptoms do not radiate. Associated signs and symptoms: Pertinent negatives: nausea, vomiting, and diarrhea, chest pain, dysuria, fever, shortness of breath. The symptoms are described as sharp. Modifying factors: The symptoms are alleviated by nothing, the symptoms are aggravated by nothing. Severity of pain: in the emergency department the pain has improved. The patient has not experienced similar symptoms in the past. The patient has not recently seen a physician. Took three tests at home and all negative. 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 - Social history:: Smoking status: Patient/guardian denies using tobacco. - Ebola Screening: : No symptoms or risks identified at this time. ROS: 20:45 Constitutional: Negative for fever, chills, and weight loss, Eyes: Negative for injury, pm1 pain, redness, and discharge, ENT: Negative for injury, pain, and discharge, Neck: Negative for injury, pain, and swelling, Cardiovascular: Negative for chest pain, palpitations, and edema, Respiratory: Negative for shortness of breath, cough, wheezing, and pleuritic chest pain. 20:45 Back: Negative for injury and pain, : Negative for injury, bleeding, discharge, and swelling, MS/Extremity: Negative for injury and deformity, Skin: Negative for injury, rash, and discoloration, Neuro: Negative for headache, weakness, numbness, tingling, and seizure. 20:45 Abdomen/GI: Positive for abdominal pain, Negative for nausea, vomiting, and diarrhea, constipation. Exam: 20:45 Constitutional: This is a well developed, well nourished patient who is awake, alert, pm1 and in no acute distress. Head/Face: Normocephalic, atraumatic. Neck: Trachea midline, no thyromegaly or masses palpated, and no cervical lymphadenopathy. Supple, full range of motion without nuchal rigidity, or vertebral point tenderness. No Meningismus. Chest/axilla: Normal chest wall appearance and motion. Nontender with no deformity. No lesions are appreciated. Cardiovascular: Regular rate and rhythm with a normal S1 and S2. No gallops, murmurs, or rubs. Normal PMI, no JVD. No pulse deficits. Respiratory: Lungs have equal breath sounds bilaterally, clear to auscultation and percussion. No rales, rhonchi or wheezes noted. No increased work of breathing, no retractions or nasal flaring. Abdomen/GI: Soft, non-tender, with normal bowel sounds. No distension or tympany. No guarding or rebound. No evidence of tenderness throughout. Back: No spinal tenderness. No costovertebral tenderness. Full range of motion. Skin: Warm, dry with normal turgor. Normal color with no rashes, no lesions, and no evidence of cellulitis. MS/ Extremity: Pulses equal, no cyanosis. Neurovascular intact. Full, normal range of motion. 20:45 Neuro: Orientation: is normal, Motor: is normal, moves all fours, Sensation: is normal, no obvious gross deficits. Vital Signs: 20:24 BP 129 / 90; Pulse 89; Resp 16; Temp 97.7; Pulse Ox 100% ; Weight 63.5 kg; Height 5 ft. la1 1 in. (154.94 cm); 21:45 BP 119 / 78; Pulse 88; Resp 16 S; Pulse Ox 100% on R/A; jd3 20:24 Body Mass Index 26.45 (63.50 kg, 154.94 cm) la1 MDM: 20:21 Patient medically screened. pm1 20:25 ED course: Patient states that she did not even want to be here and was brought to the pm1 ER by her mother. Patient does not want a CT scan but asked if she was willing to get evaluated for her lower abdominal pain with labs. Patient agreed to lab work. 20:46 Data reviewed: vital signs. Data interpreted: Pulse oximetry: on room air is 100 %. pm1 Interpretation: normal. 21:21 ED course: Reevaluated patient and patient with mild epigastric tenderness. I pm1 recommended CT scan as I had discussed with her on my initial evaluation and she is still refusing CT scan. Patient understands that I cannot complete my evaluation of her abdominal pain without a CT scan. Patient states that she will come back to the ER if she gets worse. 01/01 20:25 Order name: Basic Metabolic Panel; Complete Time: 21:04 pm1 01/01 20:25 Order name: CBC with Diff; Complete Time: 21:04 pm1 01/01 20:25 Order name: Creatinine for Radiology; Complete Time: 21:04 pm1 01/01 20:25 Order name: Hepatic Function; Complete Time: 21:04 pm1 01/01 20:25 Order name: Lipase; Complete Time: 21:04 pm1 01/01 21:20 Order name: Urine Dipstick--Ancillary (enter results); Complete Time: 21:29 ag4 01/01 20:25 Order name: IV Saline Lock; Complete Time: 20:42 pm1 01/01 20:25 Order name: Labs collected and sent; Complete Time: 20:42 pm1 01/01 20:25 Order name: Urine Dipstick-Ancillary (obtain specimen); Complete Time: 21:17 pm1 01/01 20:25 Order name: Urine Test (obtain specimen); Complete Time: 21:17 pm1 01/01 21:20 Order name: Urine --Ancillary (enter results); Complete Time: 21:29 ag4 01/01 21:31 Order name: Urine Culture pm01/01 21:31 Order name: Urine Microscopic Only; Complete Time: 00:35 pm1 Administered Medications: 21:40 Drug: Rocephin 1 grams Route: IV; Rate: calculated rate; Site: left antecubital; jd3 21:44 Follow up: Response: No adverse reaction; IV Status: Completed infusion; IV Intake: [id number] Disposition: 23:21 Co-signature as Attending Physician, Doug Hu MD. rn Disposition: 01/01/19 21:24 Discharged to Home. Impression: Unspecified abdominal pain, Urinary tract infection, site not specified. - Condition is Stable. - Discharge Instructions: Abdominal Pain, Adult, Urinary Tract Infection, Adult. - Prescriptions for Macrobid 100 mg Oral Capsule - take 1 capsule by ORAL route every 12 hours for 10 days; 20 capsule. - Medication Reconciliation Form, Thank You Letter, Antibiotic Education, Prescription Opioid Use form. - Follow up: Emergency Department; When: As needed; Reason: Worsening of condition. Follow up: Private Physician; When: 2 - 3 days; Reason: Recheck today's complaints, Continuance of care, Re-evaluation by your physician. - Problem is new. - Symptoms have improved. Signatures: Dispatcher [employer] EDMS Doug Hu MD MD rn Attema, Lee RN RN la1 Qasim Shah, ELECTRON MICROSCOPIST ELECTRON MICROSCOPIST pm1 Jose Whitlock RN RN jd3 Corrections: (The following items were deleted from the chart) 21:30 21:24 01/01/2019 21:24 Discharged to Home. Impression: Unspecified abdominal pain. pm1 Condition is Stable. Forms are Medication Reconciliation Form, Thank You Letter, Antibiotic Education, Prescription Opioid Use. Follow up: Emergency Department; When: As needed; Reason: Worsening of condition. Follow up: Private Physician; When: 2 - 3 days; Reason: Recheck today's complaints, Continuance of care, Re-evaluation by your physician. Problem is new. Symptoms have improved. pm1 21:46 21:30 01/01/2019 21:24 Discharged to Home. Impression: Unspecified abdominal pain; jd3 Urinary tract infection, site not specified. Condition is Stable. Discharge Instructions: Abdominal Pain, Adult. Forms are Medication Reconciliation Form, Thank You Letter, Antibiotic Education, Prescription Opioid Use. Follow up: Emergency Department; When: As needed; Reason: Worsening of condition. Follow up: Private Physician; When: 2 - 3 days; Reason: Recheck today's complaints, Continuance of care, Re-evaluation by your physician. Problem is new. Symptoms have improved. pm1
[2019-01-01] MEDS ORDERED: CEFTRIAXONE/SWI 1gm 1 GM/10 ML SYR ONE (21:35)
[2019-01-01 21:37] LABS: Urine Bacteria >50 /HPF (<20); Urine Culture Reflex Order REFLEXED; Urine RBC <5 /HPF (NONE SEEN)
== END 2019-01-01 21:46 | disposition home or self-care (01) ==
LOC: ER 20:10
DX: N39.0 Urinary tract infection, site not specified (principal); Z88.6 Allergy status to analgesic agent; Z88.7 Allergy status to serum and vaccine
CPT/HCPCS: 87088; 85025; 87086; 80048; 36415; 81025; 80076; 87077; 87186; 83690; 96374; 99284; J0696; 81003; 81015

== ENCOUNTER 2020-12-14 08:09 | Emergency (ER) | payer OTHER ==
--- NOTE | 2020-12-14 14:07 | ER ---
Nurse's Notes [facility] Name: Mamta Mitchell Age: 25 yrs Sex: Female : 1995 Arrival Date: 12/14/2020 Time: 08:16 Bed Waiting Private MD: Diagnosis: Presentation: 12/14 09:01 Chief complaint: Patient states: "I have a headache I haven't been able to get rid of. ss I took Tylenol sinus and headache and it worked, it went away, but it's back this morning. Pt reports that her headache is not as bad as yesterday, so she has not taken anymore Tylenol.". Coronavirus screen: Client denies travel out of the [place] in the last 14 days. Ebola Screen: Patient denies exposure to infectious person. Patient denies travel to an Ebola-affected area in the 21 days before illness onset. Initial Sepsis Screen: Does the patient meet any 2 criteria? No. Patient's initial sepsis screen is negative. Does the patient have a suspected source of infection? No. Patient's initial sepsis screen is negative. Risk Assessment: Do you want to hurt yourself or someone else? Patient reports no desire to harm self or others. Onset of symptoms was December 13, 2020. 09:01 Method Of Arrival: Ambulatory 09:01 Acuity: JHONNY 5 Historical: - Allergies: 09:02 Codeine; ss 09:02 [place]; 09:02 Tamiflu; ss - Home Meds: 09:02 None [Active]; ss - PMHx: 09:02 None; ss - PSHx: 09:02 None; ss - Immunization history:: Adult Immunizations up to date, Client reports having NOT received the Covid vaccine. - Social history:: Smoking status: Patient denies any tobacco usage or history of. Assessment: 14:03 Reassessment: Called patient to exam room. No answer. Unable to locate patient. Vital Signs: 09:02 BP 103 / 73; Pulse 77; Resp 16; Temp 97.9(TE); Pulse Ox 99% on R/A; Weight 65.77 kg; ss Height 5 ft. 1 in. (154.94 cm); Pain 2/10; 09:02 Body Mass Index 27.40 (65.77 kg, 154.94 cm) ED Course: 08:16 Patient arrived in ED. mr 09:02 Triage completed. ss 09:02 Arm band placed on right wrist. 09:25 Melquiades Colbert MD is Attending Physician. [facility] 14:04 No provider procedures requiring assistance completed. Patient did not have IV access ss during this emergency room visit. Administered Medications: No medications were administered Outcome: 14:04 Eloped from waiting room. ss 14:04 unknown 14:06 Patient left the ED. ss Signatures: Melquiades Colbert MD MD [facility] Christie Shah, RN RN ss
[2020-12-14 14:41] VITALS: BP 103/73; TEMP 97.9; O2SAT 99
== END 2020-12-14 14:06 | disposition left against medical advice (07) ==
LOC: ER 08:09
DX: Z53.21 Procedure and treatment not carried out due to patient leaving prior to being seen by health care provider (principal)
CPT/HCPCS: 99281